=== PATIENT | male | born 1970 | race Two or more races ===

== ENCOUNTER 2018-04-15 13:33 | Day surgery (SDC) | payer OTHER ==
[~2018-04-15] VITALS: Ht 167.6 cm; Wt 91.0 kg
[2018-04-15] MEDS ORDERED: LACTATED RINGERS 1,000 ML IV SCH ×2 (14:26→21:00)
[2018-04-15] MEDS ORDERED: GABAPENTIN 300 MG CAPSULE PO ONE (14:30)
[2018-04-15] MEDS ORDERED: ACETAMINOPHEN 500 MG TABLET PO ONE (14:30)
[2018-04-15 14:33] VITALS: BP 118/76
[2018-04-15] MEDS ORDERED: OMEP10SU2 PO (14:55)
[2018-04-15] MEDS ORDERED: BUPIVACAINE/PF-EPI 0.5% 1:200K ONE (17:22)
[2018-04-15] MEDS ORDERED: BACITRACIN 50,000 UNIT ONE (17:23)
[2018-04-15] MEDS ORDERED: FENTANYL PF 250 MCG/5ML ONE (17:31)
[2018-04-15] MEDS ORDERED: MIDAZOLAM 1 MG/ML, 2ML ONE (17:31)
[2018-04-15] MEDS ORDERED: GLYCOPYRROLATE 0.2MG/1ML, 5ML ONE (17:56)
[2018-04-15] MEDS ORDERED: CEFAZOLIN 1,000 MG ONE (17:56)
[2018-04-15] MEDS ORDERED: NEOSTIGMINE 1 MG/ML, 10ML ONE (17:56)
[2018-04-15] MEDS ORDERED: DEXAMETHASONE 4 MG/ML, 1ML ONE (17:56)
[2018-04-15] MEDS ORDERED: ROCURONIUM 10 MG/ML,10ML ONE (17:56)
[2018-04-15] MEDS ORDERED: ONDANSETRON 2MG/ML, 2ML ONE (17:56)
[2018-04-15] MEDS ORDERED: PROPOFOL 10 MG/ML, 20ML ONE (17:56)
[2018-04-15] MEDS ORDERED: KETOROLAC 30 MG/1 ML ONE (17:56)
[2018-04-15] MEDS ORDERED: MEPERIDINE/PF 25MG/0.5ML IVPush PRN (18:30)
[2018-04-15] MEDS ORDERED: PROMETHAZINE 25 MG/ML, 1ML IV PRN (18:30)
[2018-04-15] MEDS ORDERED: HYDROmorphone 1 MG/ML, 1ML IV PRN (18:30)
[2018-04-15] MEDS ORDERED: OXYcodone 5 MG/5 ML ORAL.SOL UDC PO PRN (18:30)
[2018-04-15] MEDS ORDERED: ALBUTEROL SULFATE 2.5 MG/3 ML NPPB PRN (18:30)
[2018-04-15] MEDS ORDERED: hydrALAzine 20 MG/ML, 1ML IV PRN (18:30)
[2018-04-15] MEDS ORDERED: ACETAMINOPHEN 325 MG TABLET PO PRN (18:30)
[2018-04-15] MEDS ORDERED: LABETALOL 5MG/ML, 20ML IV PRN (18:30)
[2018-04-15] MEDS ORDERED: FENTANYL PF 100 MCG/2ML ONE (19:15)
[2018-04-15] MEDS ORDERED: OXYcodone 5 MG/5 ML ORAL.SOL UDC ONE (19:16)
[2018-04-15] MEDS: FENTANYL PF 100 MCG/2ML IV PRN ×2 (19:27→19:39)
[2018-04-15 20:53] VITALS: BP 125/77
[2018-04-15] MEDS ORDERED: DIPHENHYDRAMINE 50 MG/ML, 1ML IVPush PRN (21:00)
[2018-04-15] MEDS ORDERED: KETOROLAC 30 MG/1 ML IV PRN (21:00)
[2018-04-15] MEDS ORDERED: MORPHINE SULFATE 4 MG/ML, 1ML IVPush PRN (21:00)
[2018-04-15] MEDS ORDERED: HYDROcodone/APAP 5/325 TABLET PO PRN (21:00)
[2018-04-15] MEDS ORDERED: ONDANSETRON 2MG/ML, 2ML IVPush PRN (21:00)
[2018-04-15] MEDS ORDERED: ENOXAPARIN 40 MG/0.4 ML SQ SCH (22:00)
== END 2018-04-15 23:50 | disposition home or self-care (01) ==
LOC: OUT 13:33 → 4NOR 20:36 → OUT 23:50
PROVIDERS: ATTEND Surgery
DX: K40.20 Bilateral inguinal hernia, without obstruction or gangrene, not specified as recurrent (principal); Z72.0 Tobacco use; Z79.899 Other long term (current) drug therapy
CPT/HCPCS: 49650; C1727; C1781; J0690; J1100; J1885; J2250; J2405; J2704; J2710; J3010; J3490; G0378